=== PATIENT | male | born 1990 ===

== ENCOUNTER 2021-06-27 17:26 | Emergency (ER) | payer SELFPAY ==
--- NOTE | 2021-06-27 19:05 | Event Note ---
ED Screening Note ED Screening Note: Patient is a 30-year-old male presents emergency room complaints of left arm tingling that began while he was driving He states he was also feeling palpitations Patient states he has had these symptoms in the past but has never seen anyone He denies any weakness, numbness or tingling in the leg, speech disturbance, headache, vision changes, chest pain, shortness of breath, neck pain, shoulder pain No past medical history No allergies to medications This initial assessment/diagnostic orders/clinical plan/treatment(s) is/are subject to change based on patients health status, clinical progression and re- assessment by fellow clinical providers in the ED. Further treatment and workup at subsequent clinical providers discretion. Patient/guardian urged not to elope from the ED as their condition may be serious if not clinically assessed and managed. Initial orders include: Labs, EKG, x-ray
[2021-06-27 19:27] LABS: Basophils % (Auto) 0.7 % (0.0-1.8); Eosinophils % (Auto) 0.3 % (0.0-4.3); Hematocrit 47.3 % (35.5-45.6); Hemoglobin 15.2 gm/dl (11.8-15.2); Lymphocytes # (Auto) 1.1 K/mm3 (1.2-5.4); Lymphocytes % (Auto) 19.8 % (13.4-35.0); Mean Corpuscular HGB Conc 32 % (32-34); Mean Corpuscular Volume 86 fl (84-94); Monocytes # (Auto) 0.4 K/mm3 (0.0-0.8); Monocytes % (Auto) 6.6 % (0.0-7.3); Platelet Count 258 K/mm3 (140-440); Red Cell Distribution Width 12.7 % (13.2-15.2)
--- NOTE | 2021-06-27 19:45 | XRay Report ---
CHEST 2 VIEWS INDICATION / CLINICAL INFORMATION: left arm tingling, palpitations. COMPARISON: None available. FINDINGS: SUPPORT DEVICES: None. HEART / MEDIASTINUM: No significant abnormality. LUNGS / PLEURA: No significant pulmonary or pleural abnormality. No pneumothorax. ADDITIONAL FINDINGS: No significant additional findings. IMPRESSION: 1. No acute findings. Signer Name: Jamal Short MD Signed: 06/27/2021 7:40 PM Workstation Name: [id number]
[2021-06-27 19:51] LABS: Alanine Aminotransferase 49 units/L (7-56); Albumin 5.2 g/dL (3.9-5); BUN/Creatinine Ratio 12; Blood Urea Nitrogen 11 mg/dL (9-20); Calcium 9.5 mg/dL (8.4-10.2); Hemolysis Index 21
--- NOTE | 2021-06-27 20:05 | Emergency Department Report ---
HPI - General Chief Complaint: Neuro Symptoms/Deficit Time Seen by Provider: 06/27/21 19:36 - HPI HPI: MSE 3 The patient is a 30-year-old male present with a chief complaint of palpitations and left upper extremity paresthesia. Patient states approximately 2 hours ago while driving he developed tingling in his left upper extremity and felt as though his heart was beating quickly. He states his Apple Watch recorded his heart rate at 118 bpm. Patient admits to nausea but denies vomiting. Patient denied having chest pain, shortness of breath, dysarthria or dysphagia. Patient denies weakness. Patient denies paresthesia anywhere else in his body. Of note the patient states this is his third episode of the same. The patient states the first episode happened approximately 1 month ago but was associated with chest pain. The patient states the second episode and this episode there was no chest pain. ED Past Medical Hx - Past Medical History Previous Medical History?: No - Surgical History Past Surgical History?: No - Family History Family history: no significant - Social History Smoking Status: Former Smoker (None for over 5 years) Substance Use Type: Alcohol (Occasional), Marijuana ED Review of Systems ROS: Stated complaint: LT ARE NUMBNESS Other details as noted in HPI Constitutional: no symptoms reported Eyes: denies: eye pain ENT: denies: throat pain Respiratory: no symptoms reported Cardiovascular: palpitations. denies: chest pain Endocrine: no symptoms reported Gastrointestinal: nausea. denies: vomiting Genitourinary: denies: dysuria Musculoskeletal: denies: back pain Neurological: paresthesias. denies: headache Physical Exam - Physical Exam Vital Signs: Vital Signs 06/27/21 18:05 Temperature 98.3 F Pulse Rate 83 Respiratory 16 Rate Blood Pressure 127/55 [Left] O2 Sat by Pulse 100 Oximetry Physical Exam: GENERAL: The patient is well-developed well-nourished male lying on stretcher not appearing to be in acute. [] HEENT: Normocephalic. Atraumatic. Extraocular motions are intact. Patient has moist mucous membranes. NECK: Supple. Trachea midline CHEST/LUNGS: Clear to auscultation. There is no respiratory distress noted. HEART/CARDIOVASCULAR: Regular. There is no tachycardia. There is no gallop rub or murmur. ABDOMEN: Abdomen is soft, nontender. Patient has normal bowel sounds. There is no abdominal distention. SKIN: There is no rash. There is no edema. There is no diaphoresis. NEURO: The patient is awake, alert, and oriented. The patient is cooperative. The patient has no focal neurologic deficits. The patient has normal speech. Cranial nerves II through XII grossly intact, GCS 15. MUSCULOSKELETAL: There is no evidence of acute injury. ED Course Vital Signs 06/27/21 18:05 Temperature 98.3 F Pulse Rate 83 Respiratory 16 Rate Blood Pressure 127/55 [Left] O2 Sat by Pulse 100 Oximetry ED Medical Decision Making - Lab Data Result diagrams: 06/27/21 19:12 06/27/21 19:12 Laboratory Tests 06/27/21 06/27/21 06/27/21 19:12 19:12 19:54 WBC 5.7 RBC 5.50 H Hgb 15.2 Hct 47.3 H MCV 86 MCH 28 MCHC 32 RDW 12.7 L Plt Count 258 Lymph % (Auto) 19.8 [place] % (Auto) 6.6 Eos % (Auto) 0.3 Baso % (Auto) 0.7 Lymph # (Auto) 1.1 L [place] # (Auto) 0.4 Eos # (Auto) 0.0 Baso # (Auto) 0.0 Seg Neutrophils % 72.6 H Seg Neutrophils # 4.1 D-Dimer < 135.00 Sodium 136 L Potassium 3.8 Chloride 98.7 Carbon Dioxide 20 L Anion Gap 21 BUN 11 Creatinine 0.9 Estimated GFR > 60 BUN/Creatinine Ratio 12 Glucose 88 Calcium 9.5 Magnesium Total Bilirubin 0.90 AST 29 ALT 49 Alkaline Phosphatase 76 Total Creatine Kinase CK-MB (CK-2) CK-MB (CK-2) Rel Index Troponin T < 0.010 Total Protein 8.5 H Albumin 5.2 H Albumin/Globulin Ratio 1.6 TSH Free T4 06/27/21 06/27/21 19:54 19:54 WBC RBC Hgb Hct MCV MCH MCHC RDW Plt Count Lymph % (Auto) [place] % (Auto) Eos % (Auto) Baso % (Auto) Lymph # (Auto) [place] # (Auto) Eos # (Auto) Baso # (Auto) Seg Neutrophils % Seg Neutrophils # D-Dimer Sodium Potassium Chloride Carbon Dioxide Anion Gap BUN Creatinine Estimated GFR BUN/Creatinine Ratio Glucose Calcium Magnesium 2.00 Total Bilirubin AST ALT Alkaline Phosphatase Total Creatine Kinase 115 CK-MB (CK-2) 1.3 CK-MB (CK-2) Rel Index 1.1 Troponin T Total Protein Albumin Albumin/Globulin Ratio TSH 0.621 Free T4 1.33 - EKG Data -: EKG Interpreted by Me EKG shows normal: sinus rhythm Rate: normal - EKG Data When compared to previous EKG there are: previous EKG unavailable Interpretation: other (Early repolarization) - Radiology Data Radiology results: report reviewed (Chest x-ray), image reviewed (Chest x-ray, CT head) interpreted by me: Chest x-ray-no definite focal infiltrates, no pneumothorax CHEST 2 VIEWS INDICATION / CLINICAL INFORMATION: left arm tingling, palpitations. COMPARISON: None available. FINDINGS: SUPPORT DEVICES: None. HEART / MEDIASTINUM: No significant abnormality. LUNGS / PLEURA: No significant pulmonary or pleural abnormality. No pneumothorax. ADDITIONAL FINDINGS: No si gnificant additional findings. IMPRESSION: 1. No acute findings. Signer Name: Jamal Short MD Signed: 06/27/2021 6:40 PM Workstation Name: [place] [id number] Cat Scan Report Signed Patient: JESÚS POWELL MR#: [id number] : 1990 Acct:[id number] Age/Sex: 30 / M ADM Date: 06/27/21 Loc: ED Attending Dr: Ordering Physician: MANSI PATTERSON MD Date of Service: 06/27/21 Procedure(s): CT head/brain wo con Accession Number(s): [id number] cc: MANSI PATTERSON MD CT HEAD WITHOUT CONTRAST INDICATION / CLINICAL INFORMATION: Left upper extremity numbness. TECHNIQUE: All CT scans at this location are performed using CT dose reduction for ALARA by means of automated exposure control. COMPARISON: None available. FINDINGS: HEMORRHAGE: None. EXTRA-AXIAL SPACES: Normal in size and morphology for the patient's age. VENTRICULAR SYSTEM: Normal in size and morphology for the patient's age. CEREBRAL PARENCHYMA: No significant abnormality. No acute territorial infarct. MIDLINE SHIFT OR HERNIATION: None. C EREBELLUM / BRAINSTEM: No significant abnormality. ORBITS: Normal as visualized. SOFT TISSUES of HEAD: No significant abnormality. CALVARIUM: No significant abnormality. PARANASAL SINUSES / MASTOID AIR CELLS: Normal as visualized. ADDITIONAL FINDINGS: None. IMPRESSION: 1. No acute intracranial abnormality. Signer Name: Jamal Short MD Signed: 06/27/2021 9:35 PM Workstation Name: [id number] Transcribed By: TL Dictated By: Jamal Short MD Electronically Authenticated By: Jamal Short MD Signed Date/Time: 06/27/212134 DD/ 33 TD/TT: Print Cancel - Differential Diagnosis Dysrhythmia, PE, TIA, electrolyte abnormality, ACS, anxiety, hyperthyroid Critical care attestation.: If time is entered above; I have spent that time in minutes in the direct care of this critically ill patient, excluding procedure time. ED Disposition Clinical Impression: Palpitations, Arm paresthesia, left Disposition: 01 HOME / SELF CARE / HOMELESS Is pt being admited?: No Does the pt Need Aspirin: No Condition: Stable Instructions: Paresthesia, Palpitations Additional Instructions: Return to the emergency department should you develop worsening symptoms, inability to tolerate food or liquids, high fever or any other concerns Referrals: [facility] [Provider Group] - 3-5 Days TIERNEY PELAEZ MD [Staff Physician] - 3-5 Days (Dr. Pelaez is a client evaluator. Please follow-up with him for further evaluate) Time of Disposition: 21:55
[2021-06-27 20:33] LABS: Creatine Kinase MB 1.3 ng/mL (0.0-4.0)
[2021-06-27 20:44] LABS: Free T4 (Free Thyroxine) 1.33 ng/dL (0.76-1.46)
--- NOTE | 2021-06-27 21:39 | Cat Scan Report ---
CT HEAD WITHOUT CONTRAST INDICATION / CLINICAL INFORMATION: Left upper extremity numbness. TECHNIQUE: All CT scans at this location are performed using CT dose reduction for ALARA by means of automated e xposure control. COMPARISON: None available. FINDINGS: HEMORRHAGE: None. EXTRA-AXIAL SPACES: Normal in size and morphology for the patient's age. VENTRICULAR SYSTEM: Normal in size and morphology for the patient's age. CEREBRAL PARENCHYMA: No significant abnormality. No acute territorial infarct. MIDLINE SHIFT OR HERNIATION: None. CEREBELLUM / BRAINSTEM: No significant abnormality. ORBITS: Normal as visualized. SOFT TISSUES of HEAD: No significant abnormality. CALVARIUM: No significant abnormality. PARANASAL SINUSES / MASTOID AIR CELLS: Normal as visualized. ADDITIONAL FINDINGS: None. IMPRESSION: 1. No acute intracranial abnormality. Signer Name: Jamal Short MD Signed: 06/27/2021 9:35 PM Workstation Name: [id number]
[2021-06-27 22:08] VITALS: BP 126/62
--- NOTE | 2021-06-28 11:00 | Electrocardiograph Report ---
[facility] Test Date: 2021-06-27 Test Time: 19:32:17 Pat Name: JESÚS POWELL Department: Room: Gender: M Wad Lubricator: CHILANGO : 1990 Requested By: ROBB CHONG Order Number: [id number] Reading MD: Narcisa Mckenzie Measurements Intervals [place] Rate: 62 P: 45 AR: 167 QRS: 8 QRSD: 102 T: 32 QT: 404 QTc: 410 Interpretive Statements Sinus rhythm Normal ECG No previous ECG available for comparison Electronically Signed On 06-28-2021 10:59:49 EST by Narcisa Mckenzie
== END 2021-06-27 22:07 | disposition home or self-care (01) ==
LOC: ED 17:26
DX: R20.2 Paresthesia of skin (principal); R20.0 Anesthesia of skin; F12.90 Cannabis use, unspecified, uncomplicated; Z87.891 Personal history of nicotine dependence; Z72.89 Other problems related to lifestyle
CPT/HCPCS: 36415; 70450; 71046; 80053; 82550; 82553; 83735; 84439; 84443; 84484; 85025; 85379; 93005; 99284